=== PATIENT | male | born 1965 | race African-American/Black ===

== ENCOUNTER 2022-10-03 14:37 | Emergency (ER) | payer OTHER ==
[~2022-10-03] VITALS: Ht 175.3 cm; Wt 113.4 kg
[~2022-10-03 14:37] MED LIST: CARV12.5 PO; FERR324T11 PO; LOSA100T51 PO; LOV100I SUBQ; WARF5TAB1 PO
[2022-10-03 14:50] VITALS: BP 113/63
[2022-10-03] MEDS ORDERED: CYCL-711 PO (16:48)
[2022-10-03 17:30] VITALS: BP 125/76
== END 2022-10-03 17:30 | disposition home or self-care (01) ==
LOC: MED 14:37
DX: S86.812A Strain of other muscle(s) and tendon(s) at lower leg level, left leg, initial encounter (principal); I10 Essential (primary) hypertension; Z86.718 Personal history of other venous thrombosis and embolism; Z79.899 Other long term (current) drug therapy; X58.XXXA Exposure to other specified factors, initial encounter; Y93.89 Activity, other specified; Y92.89 Other specified places as the place of occurrence of the external cause; Y99.8 Other external cause status
CPT/HCPCS: 93971; 99284